=== PATIENT | male | born 1985 | race Caucasian/White ===

== ENCOUNTER → 2017-07-28 12:05 | Outpatient (CLI) | payer MEDICAID, SELFPAY ==
--- NOTE | 2017-07-28 12:12 | XR_ITS ---
XR wrist LT min 3V HISTORY: Pain, ganglion cyst ITS.REASON: PAIN,CYST ORDERING PHYSICIAN: Janice Schmitz PATIENT AGE: 32 years COMPARISON: None FINDINGS: No fracture or dislocation. No lytic or blastic change. There is normal mineralization.. The joint spaces are well-preserved. No significant degenerative/arthritic changes. No erosive changes evident.. No soft tissue calcification or obvious soft tissue mass. MRI may be of further value for ganglion cyst evaluation if clinically warranted. IMPRESSION: Negative wrist
== END ==
PROVIDERS: PCP Nurse Practitioner Family; Visit Provider Nurse Practitioner Family
DX: M25.532 Pain in left wrist (principal)
CPT/HCPCS: 73110